=== PATIENT | female | born 1970 | race Caucasian/White ===

== ENCOUNTER 2018-11-19 18:04 | Emergency (ER) | payer BC, SELFPAY ==
[2018-11-19 18:04] VITALS: BP 136/82; PULSE 93; RESP 16; TEMP 36.6; O2SAT 99; BMI 23.8
[2018-11-19] MEDS: Ketorolac 60 MG/2 ML Vial IM (18:46)
[2018-11-19] MEDS: Orphenadrine 60 MG/2 ML Ampul IM (18:46)
[2018-11-19] MEDS: morphine 8 MG/ML Syringe IM (18:46)
--- NOTE | 2018-11-19 18:53 | ED.VISSUMM ---
- ER Visit Summary Date of Service: 11/19/18 Chief Complaint: Back pain History of Present Illness: The patient is a [address] Ramirez. She reports that yesterday she lifted her lawnmower into her truck and did not have pain at that time. However, she reports that she has severe lower back pain that she noted when she woke up this morning. It is a sharp pain is 10-10 severity. Is worsened by movement or coughing. Is relieved by remaining still. She took ibuprofen without relief. There is no relation to her legs. No numbness or weakness in her legs. No problems with her bowels or bladder. No groin numbness. She does report she had similar symptoms previously, but not this severe. Review of systems: General: No fever, chills, cold sweats. Cardiovascular: No chest pain, palpitations. Respiratory: No cough, shortness of breath, dyspnea on exertion. Gastrointestinal: No abdominal pain, nausea, vomiting, diarrhea, melena, or hematochezia. Genitourinary: No dysuria, frequency, hematuria. Skin: No rash. Neuro: No headache, numbness, weakness. Physical Examination: Vitals: Stable. Afebrile. General: A&O x 3. NAD. Cardiovascular exam: Regular rate and rhythm, no murmur, rub or gallop. Respiratory exam: Clear to auscultation bilaterally. No wheezes or stridor. Abdominal exam: Soft, nontender, nondistended, normal bowel sounds. No peritoneal signs. Back: Diffuse moderate tenderness to palpation over the lumbar spine and the paraspinous musculature in the lumbar region. No point tenderness. Negative straight leg bilaterally. 5/5 DF, PF, EHL bilaterally. Normal sensation to light touch throughout. Extremity: No clubbing, cyanosis, or edema. Emergency Department Course and Treatment: An [facility] report was obtained which shows she had a prescriptions for opiates in the past year. These of all been from her primary care physician. She is given a dose of Toradol, Norflex, and morphine IM. She is resting more comfortably. Treatment Plan: Patient will be discharged prescription for 12 Percocet. Instructed to follow-up with her primary care physician 1 week if not improving. Return to the emergency department for any worsening symptoms. Disposition: To home in improved and stable condition. Impression: 1. Acute low back pain. This note was generated with [employer] dictation software. It may contain incorrect words, spelling, and punctuation that were not noted in review of the chart prior to signing ED Disposition - Plan for ED Patient: Instructions: BACK AND NECK PAIN, General Prescriptions: Naproxen [Naprosyn] 500 mg PO BID #14 tablet Oxycodone HCl/Acetaminophen [Percocet 5/325] 1 tablet PO Q6H PRN PRN 3 Days #12 tablet PRN Reason: Pain Referrals: Franklin Ramirez MD [Primary Care Provider] - 1 Week if not improving
[2018-11-19 19:28] VITALS: BP 132/75; PULSE 84; RESP 16; O2SAT 97
== END 2018-11-19 19:31 | disposition home or self-care (01) ==
LOC: ED 18:51
PROVIDERS: Emergency Provider Emergency Medicine; Family Provider Internal Medicine; PCP Internal Medicine
DX: M54.5 Low back pain (principal); J45.909 Unspecified asthma, uncomplicated; I10 Essential (primary) hypertension; F41.9 Anxiety disorder, unspecified; Z79.899 Other long term (current) drug therapy; F17.200 Nicotine dependence, unspecified, uncomplicated
CPT/HCPCS: 96372; 99282